=== PATIENT | female | born 1960 | race Caucasian/White ===

== ENCOUNTER 2016-06-12 10:31 | Emergency (ER) | payer SELFPAY ==
[~2016-06-12] VITALS: Ht 172.7 cm; Wt 91.2 kg
[~2016-06-12 10:31] MED LIST: SULF-154 PO
[2016-06-12 10:44] VITALS: BP 122/68; PULSE 69; RESP 16; TEMP 97.8; O2SAT 98
[2016-06-12] MEDS ORDERED: PRIL20CA9 PO (11:01)
--- NOTE | 2016-06-12 11:08 | PD ---
HPI Chief Complaint: Abdominal Pain Time Seen by Provider: 10:48 Travel History International Travel<30 days: No Contact w/Intl Traveler<30days: No Traveled to known affect area: No History of Present Illness HPI This is a 55-year-old female who presents to the emergency department with left- sided abdominal pain that started yesterday evening, intermittent, moderate severity associated with 2 loose stools this morning. She said her friend who is with her any the same thing yesterday had some vomiting last evening. She says she felt nauseous last night but didn't vomit. She denies any fevers or chills. She also says she's had a lot of itching and some white vaginal discharge. She's had one sexual partner in the past 6 months. She says this feels somewhat similar to when she's ruptured an ovarian cyst in the past PFSH Past Medical History Anxiety: Yes Depression: Yes High Cholesterol: Yes Diminished Hearing: No GERD: Yes Immunizations Current: Yes Tetanus Vaccination: < 5 Years Influenza Vaccination: No ?: Not LMP: menapause Menopausal: Yes : 0 Ovarian Cysts: Yes Past Surgical History Gynecologic Surgery: Yes (LAPARASCOPIC FOR OVARIAN CYST, ENDOMETRIOSIS) Oral Surgery: Yes Tonsillectomy: Yes Family History Family Hypercholesterolemia: Yes (MOTHER) Social History Alcohol Use: Yes ("WEEKENDS") Tobacco Use: Yes (1 PPD) Substance Use: Yes (WEED) Allergies-Medications (Allergen,Severity, Reaction): Coded Allergies: Penicillin (Unverified Allergy, Unknown, 06/12/16) Reported Meds & Prescriptions Reported Meds & Active Scripts Active Reported Prilosec (Omeprazole) 20 Mg Cap 40 Mg PO DAILY Review of Systems Except as stated in HPI: all other systems reviewed are Neg Physical Exam Narrative GENERAL:Well appearing, no acute distress SKIN: Warm and dry. HEAD: Atraumatic. Normocephalic. EYES: Pupils equal and round. No injection or drainage. ENT: Moist mucous membranes NECK: Trachea midline. CARDIOVASCULAR: Regular rate and rhythm. No murmur appreciated. RESPIRATORY: Clear to auscultation. Breath sounds equal bilaterally. GASTROINTESTINAL: Abdomen soft, tender to palpation in the left upper quadrant and left lower quadrants with no rebound or guarding. CHAIN CARRIER: no cmt or adnexal discharge, scant white cheesy discharge in the vault MUSCULOSKELETAL: No obvious deformities. NEUROLOGICAL: Awake and alert. No obvious cranial nerve deficits. Moving all extremities. PSYCHIATRIC: Appropriate mood and affect; insight and judgment normal. Data Data Last Documented VS Vital Signs Date Time Temp Pulse Resp B/P Pulse Ox O2 Delivery O2 Flow Rate FiO2 06/12/16 12:42 56 18 111/55 96 Room Air 06/12/16 10:44 97.8 Orders Complete Blood Count With Diff (06/12/16 11:06) Comprehensive Metabolic Panel (06/12/16 11:06) Urinalysis - C+S If Indicated (06/12/16 11:06) Iv Access Insert/Monitor (06/12/16 11:06) Ecg Monitoring (06/12/16 11:06) Oximetry (06/12/16 11:06) Sodium Chloride 0.9% Flush (Ns Flush) (06/12/16 11:15) Lipase (06/12/16 11:06) Urine Culture (06/12/16 11:15) Ct Abd/Pel W Iv Contrast(Rout) (06/12/16 ) Iohexol 350 Inj (Omnipaque 350 Inj) (06/12/16 12:16) Morphine Inj (Morphine Inj) (06/12/16 12:45) Labs Laboratory Tests Test 06/12/16 06/12/16 11:10 11:15 White Blood Count 9.7 TH/MM3 Red Blood Count 4.58 MIL/MM3 Hemoglobin 14.1 GM/DL Hematocrit 40.7 % Mean Corpuscular Volume 88.8 FL Mean Corpuscular Hemoglobin 30.7 PG Mean Corpuscular Hemoglobin 34.6 % Concent Red Cell Distribution Width 13.2 % Platelet Count 193 TH/MM3 Mean Platelet Volume 8.8 FL Neutrophils (%) (Auto) 59.1 % Lymphocytes (%) (Auto) 28.4 % Monocytes (%) (Auto) 6.1 % Eosinophils (%) (Auto) 1.9 % Basophils (%) (Auto) 4.5 % Neutrophils # (Auto) 5.8 TH/MM3 Lymphocytes # (Auto) 2.7 TH/MM3 Monocytes # (Auto) 0.6 TH/MM3 Eosinophils # (Auto) 0.2 TH/MM3 Basophils # (Auto) 0.4 TH/MM3 CBC Comment DIFF FINAL Differential Comment Sodium Level 141 MEQ/L Potassium Level 4.2 MEQ/L Chloride Level 108 MEQ/L Carbon Dioxide Level 22.6 MEQ/L Anion Gap 10 MEQ/L Blood Urea Nitrogen 15 MG/DL Creatinine 0.83 MG/DL Estimat Glomerular Filtration 71 ML/MIN Rate Random Glucose 95 MG/DL Calcium Level 8.9 MG/DL Total Bilirubin 0.2 MG/DL Aspartate Amino Transf 15 U/L (AST/SGOT) Alanine Aminotransferase 31 U/L (ALT/SGPT) Alkaline Phosphatase 120 U/L Total Protein 7.4 GM/DL Albumin 3.5 GM/DL Lipase 274 U/L Urine Collection Type CLEAN CATCH Urine Color STRAW Urine Turbidity CLEAR Urine pH 6.0 Urine Specific [place] 1.006 Urine Protein NEG mg/dL Urine Glucose (UA) NEG mg/dL Urine Ketones NEG mg/dL Urine Occult Blood NEG Urine Nitrite NEG Urine Bilirubin NEG Urine Leukocyte Esterase NEG Urine WBC 0-2 /hpf Urine Squamous Epithelial 0-5 /hpf Cells Urine Amorphous Sediment FEW Urine Bacteria MOD /hpf Microscopic Urinalysis Comment CULTURE INDICATED Urine Collection Time 1115 MDM Medical Decision Making Medical Screen Exam Complete: Yes Emergency Medical Condition: Yes Interpretation(s) Afebrile, no tachycardia, normotensive No leukocytosis Electrolytes are reassuring Lipase is normal Urinalysis is negative CT abdomen and pelvis: Wall thickening of the descending and sigmoid colon from colitis Differential Diagnosis Colitis, diverticulitis, ovarian cyst rupture, pancreatitis, pelvic inflammatory disease Narrative Course This is a 55-year-old female who presents to the emergency department with abdominal pain in the left lower quadrant associated with nausea. She was placed on a monitor and an IV was established. Labs were obtained which were reassuring. Pelvic exam was unremarkable. CT demonstrates colitis. Patient will be discharged on antibiotics and pain control. Diagnosis Primary Impression: Colitis Patient Instructions: General Instructions Additional Instructions: If you develop severe or worsening abdominal pain, fever>100.4, persistent vomiting or inability to eat or drink return to the emergency department immediately. Follow up with your primary care physician in 1-2 days for a check-up. Med/Other Pt SpecificInfo: Prescription(s) given Scripts Fluconazole 150 Mg [id number] Mg PO ONCE #1 TAB Ref 0 Prov:Nataliia Dozier MD 06/12/16 Metronidazole (Flagyl)500 Mg [id number] Mg PO BID 10 Days Prov:Nataliia Dozier MD 06/12/16 Ciprofloxacin 500 Mg [id number] Mg PO BID 10 Days Prov:Nataliia Dozier MD 06/12/16 Disposition: 01 DISCHARGE HOME Condition: Stable Nataliia Dozier MD Jun 12, 2016 11:08
[2016-06-12] MEDS ORDERED: SODIUM CHLORIDE 0.9% FLUSH 5 ML FLUSH IVF PRN (11:15)
[2016-06-12 11:22] LABS: AUTOMATED NEUTROPHIL # 5.8 TH/MM3 (1.8-7.7); BASOPHIL # 0.4 TH/MM3 (0-0.2); BASOPHIL % 4.5 % (0.0-2.0); EOSINOPHIL # 0.2 TH/MM3 (0-0.4); EOSINOPHIL % 1.9 % (0.0-4.0); HEMATOCRIT 40.7 % (35.0-46.0); HEMO FLAGS DIFF FINAL; LYMPH % 28.4 % (9.0-44.0); LYMPHOCYTE # 2.7 TH/MM3 (1.0-4.8); MEAN CELL VOLUME 88.8 FL (80.0-100.0); MEAN CORPUSCULAR HEMOGLOBIN 30.7 PG (27.0-34.0); MEAN CORPUSCULAR HGB CONC 34.6 % (32.0-36.0); MONO % 6.1 % (0.0-8.0); NEUT % 59.1 % (16.0-70.0); PLATELET COUNT 193 TH/MM3 (150-450); RED BLOOD COUNT 4.58 MIL/MM3 (4.00-5.30); RED CELL DISTRIBUTION WIDTH 13.2 % (11.6-17.2); WHITE BLOOD COUNT 9.7 TH/MM3 (4.0-11.0)
[2016-06-12 11:25] VITALS: O2SAT 98
[2016-06-12 11:34] LABS: BLOOD, URINE NEG (NEG); GLUCOSE,URINE NEG (NEG); KETONE, URINE NEG (NEG); NITRITE,URINE NEG (NEG)
[2016-06-12 11:45] LABS: METHOD OF COLLECTION CLEAN CATCH; URINE COLOR STRAW (YELLW/STRAW)
[2016-06-12 11:46] LABS: BACTERIA, URINE MOD /hpf; COMMENT (UR) CULTURE INDICATED; CULTURE IF INDICATED CULTURE INDICATED; SQUAMOUS EPITHELIAL CELL URINE 0-5 /hpf (0-5); WBC, URINE 0-2 /hpf (0-5)
[2016-06-12 12:07] LABS: CHLORIDE 108 MEQ/L (98-107); POTASSIUM 4.2 MEQ/L (3.5-5.1); SODIUM (NA) 141 MEQ/L (136-145)
[2016-06-12] MEDS ORDERED: IOHEXOL 350 MG/ML 10 ML VIAL (for RAD DIAG) IV ONE (12:16)
[2016-06-12 12:34] LABS: TOTAL BILIRUBIN ADULT 0.2 MG/DL (0.2-1.0)
[2016-06-12 12:35] LABS: ALKALINE PHOSPHATASE 120 U/L (45-117)
[2016-06-12 12:39] LABS: ANION GAP 10 MEQ/L (5-15); BICARBONATE 22.6 MEQ/L (21.0-32.0); BLOOD UREA NITROGEN 15 MG/DL (7-18)
[2016-06-12 12:42] VITALS: BP 111/55; PULSE 56; RESP 18; O2SAT 96
[2016-06-12 12:42] LABS: ALT (GPT) 31 U/L (10-53); AST (GOT) 15 U/L (15-37); GLOMERULAR FILTRATION RATE 71 ML/MIN (>89)
--- NOTE | 2016-06-12 12:42 | RADHPO ---
EXAM DATE/TIME: 06/12/2016 12:07 [facility] COMPARISON: No previous studies available for comparison. INDICATIONS : Left sided abdominal pain since last night. IV CONTRAST: 100 cc Omnipaque 350 (iohexol) IV ORAL CONTRAST: No oral contrast ingested. RADIATION DOSE: 20.83 CTDIvol (mGy) MEDICAL HISTORY : Gastroesophageal reflux disease. SURGICAL HISTORY : None. ENCOUNTER: Initial ACUITY: 2 days PAIN SCALE: 6/10 LOCATION: Left abdomen TECHNIQUE: Volumetric scanning of the abdomen and pelvis was performed. Using automated exposure control and ad justment of the mA and/or kV according to patient size, radiation dose was kept as low as reasonably achievable to obtain optimal diagnostic quality images. FINDINGS: LOWER LUNGS: The visualized lower lungs are clear. LIVER: Decreased attenuation without lesion. There is no dilation of the biliary tree. No calcified gallst ones. SPLEEN: Normal size without lesion. PANCREAS: Within normal limits. KIDNEYS: Normal in size and shape. There is no mass, stone or hydronephrosis. ADRENAL GLANDS: Within normal limits. VASCULAR: There is no aortic aneurysm. BOWEL/MESENTERY: Wall thickening versus nondistention of the descending and sigmoid colon. No inflammatory changes. Ap pendix is normal. There is no free intraperitoneal air or fluid. Single prominent diverticulum of the distal descending colon. ABDOMINAL WALL: Within normal limits. RETROPERITONEUM: There is no lymphadenopathy. BLADDER: No wall thickening or mass. REPRODUCTIVE: Within normal limits. INGUINAL: There is no lymphadenopathy or hernia. MUSCULOSKELETAL: Within normal limits for patient age. CONCLUSION: 1. Hepatic steatosis. 2. Wall thickening versus nondistention of the descending and sigmoid colon could be from a colitis. No significant inflammatory changes. 3. There is a single prominent diverticula within the distal descending colon without diverticulitis. William Brown MD on June 12, 2016 at 12:28 Board Certified Radiologist. This report was verified electronically.
[2016-06-12] MEDS ORDERED: MORPHINE SULFATE 4 MG/ML INJ IV PUSH ONE (12:45)
[2016-06-12] MEDS ORDERED: FLUC150T PO (12:59)
[2016-06-12] MEDS ORDERED: METR-1 PO (12:59)
[2016-06-12] MEDS ORDERED: CIPR500T2 PO (12:59)
[2016-06-12] MEDS ORDERED: TRAM50TA PO (13:00)
[2016-06-12 13:36] VITALS: BP 110/55
== END 2016-06-12 13:41 | disposition home or self-care (01) ==
LOC: PHED 10:31
DX: K52.9 Noninfective gastroenteritis and colitis, unspecified (principal); N89.8 Other specified noninflammatory disorders of vagina; E78.00 Pure hypercholesterolemia, unspecified; N83.209 Unspecified ovarian cyst, unspecified side; F17.210 Nicotine dependence, cigarettes, uncomplicated
CPT/HCPCS: 74177; 80053; 81001; 83690; 85025; 87086; 96374; 99284; J2270; Q9967

== ENCOUNTER 2018-01-23 09:03 | Inpatient (IN) ==
[2018-01-23] MEDS ORDERED: Morphine Inj 4 MG/ML Vial IV.PUSH ONE (09:16)
--- NOTE | 2018-01-23 09:22 | ED ---
HPI General Chief Complaint: Fall Stated Complaint: workers comp/lt wrist injury Time Seen by Provider: 01/23/18 09:12 History of Present Illness HPI Narrative: The patient was seen and examined in the presence of the nurse. This patient complains of a fall. She tripped over her shoelaces and fell down on the concrete. Duration 1 hour. Symptoms of pain are severe. She has pain and deformity at the left wrist as well as pain at the right elbow. She did not hit her head. No head or neck pain. No alleviating factors. Pain is worse with movement of the affected joint. Related Data Home Medications Medication Instructions Recorded Confirmed No Known Home Medications 01/23/18 01/23/18 Allergies Allergy/AdvReac Type Severity Reaction Status Date / Time penicillin G Allergy Unknown not sure Verified 01/23/18 10:08 Review of Systems ROS: all other systems reviewed are negative FOR[facility]LY [facility] Medical History Medical History No significant medical problems (Acute) Social History Social History Substance History: No History of Abuse Smoking Status: Current every day smoker Tobacco Type: Cigarettes How Often Do You Have a Drink Containing Alcohol: Monthly or less Exam Narrative Exam Narrative: GENERAL: Well-nourished, well-developed patient having a lot of pain . SKIN: Focused skin assessment reveals no rash and nodules. Skin is Warm and dry. HEAD: Atraumatic. Normocephalic. EYES: Pupils equal and round. No scleral icterus. No injection or drainage. ENT: No nasal bleeding or discharge. Mucous membranes pink and moist. NECK: Trachea midline. No JVD. CARDIOVASCULAR: Regular rate and rhythm. No murmur appreciated. RESPIRATORY: No accessory muscle use. Clear to auscultation. Breath sounds equal bilaterally. GASTROINTESTINAL: Abdomen soft, non-tender, nondistended. Hepatic and splenic margins not palpable. MUSCULOSKELETAL: Patient has some tenderness and deformity of the left wrist. Pulse sensation and cap refill intact. There is some tenderness to the lateral epicondyle area of the right elbow. Neurovascularly intact. no clubbing. No cyanosis. No edema. NEUROLOGICAL: Awake and alert. No obvious cranial nerve deficits. Motor grossly within normal limits. Normal speech. PSYCHIATRIC: Appropriate mood and affect; insight and judgment normal. Course Initial Documented Vital Signs Temperature 97.9 F 01/23/18 09:05 Pulse Rate 103 H 01/23/18 09:05 Respiratory Rate 20 01/23/18 09:05 Blood Pressure 177/84 H 01/23/18 09:05 Pulse Oximetry 97 01/23/18 09:05 Last Documented Vital Signs Temperature 97.9 F 01/23/18 09:05 Pulse Rate 61 01/23/18 10:32 Respiratory Rate 16 01/23/18 10:32 Blood Pressure 126/61 01/23/18 10:32 Pulse Oximetry 96 01/23/18 10:32 Medical Decision Making MDM Narrative Medical decision making narrative: This is a 57-year-old female with mechanical fall presenting with left wrist pain and deformity. IV placed and labs sent. I gave her morphine and Zofran for symptom relief. I ordered x-rays. She has a nondisplaced right radial head fracture. She also has a comminuted displaced left distal radius fracture. She has pulse and sensation and cap refill. I reviewed it with orthopedist Dr. Andrade who looked at the x-rays. He notes that this is an operative repair. Patient would rather be hospitalized and get surgery tomorrow morning rather than see the orthopedist in the office today and have surgery for tomorrow. Labs are reasonably normal. Shortly after discussion with orthopedist the patient started complaining of pins and needle sensation in all 5 fingers and the palm of her left hand. She continues to have good pulse. I reviewed with Dr. Andrade a second time and he agreed that I should do conscious sedation and attempt reduction of the left wrist to line it up better than it is now. I reviewed this in detail with the patient and recommended that I do this. The patient refused to have me give her sedation or touch her wrist again. She says she wants to orthopedist to do any manipulation. I explained that he was in the other hospital at the moment and I could do this now but she refused. Patient will be admitted to the main hospital for operative repair of her wrist. She is now aggravated and frustrated that she is not getting seen and operated on right away. She seems to be getting more and more irritable as time goes on. I will give her a second morphine injection if her blood pressure allows. Dr. saucedo is seeing her at the moment Medical Screen Exam Complete: Yes Emergency Medical Condition: Yes Differential Diagnosis Differential Diagnosis: Fracture, dislocation, contusion Medical Records Medical records reviewed: Yes I reviewed the patient's medical records. Lab Data Lab results reviewed: Yes I reviewed the patient's lab results. Lab results narrative: Labs are normal Result diagrams: 01/23/18 09:44 01/23/18 09:44 Lab Results 01/23/18 01/23/18 01/23/18 Range/Units 09:44 09:44 09:44 CBC w Diff Auto diff final WBC 7.6 (4.0-11.0) th/mm3 RBC 4.54 (4.00-5.30) mil/mm3 Hgb 14.3 (11.6-15.3) gm/dL Hct 42.3 (35.0-46.0) % MCV 93.1 (80.0-100.0) fL MCH 31.5 (27.0-34.0) pg MCHC 33.8 (32.0-36.0) % RDW 12.7 (11.6-17.2) % Plt Count 174 (150-450) th/mm3 MPV 9.3 (7.0-11.0) fL Neut % (Auto) 66.1 (16.0-70.0) % Lymph % (Auto) 25.4 (9.0-44.0) % [place] % (Auto) 6.6 (0.0-8.0) % Eos % (Auto) 1.3 (0.0-4.0) % Baso % (Auto) 0.6 (0.0-2.0) % Neut # (Auto) 5.1 (1.8-7.7) th/mm3 Lymph # (Auto) 1.9 (1.0-4.8) th/mm3 [place] # (Auto) 0.5 (0.0-0.9) th/mm3 Eos # (Auto) 0.1 (0.0-0.4) th/mm3 Baso # (Auto) 0.0 (0.0-0.2) th/mm3 WBC Differential . Differential Comment . PT 9.7 L (9.8-11.6) sec INR 1.0 Ratio APTT 26.6 (24.3-30.1) sec Sodium 140 (136-145) meq/L Potassium 3.8 (3.5-5.1) meq/L Chloride 108 H (98-107) meq/L Carbon Dioxide 22.4 (21.0-32.0) meq/L Anion Gap 10 (5-15) meq/L BUN 14 (7-18) mg/dL Creatinine 0.79 (0.50-1.00) mg/dL Estimated GFR 75 L (>89) mL/min Random Glucose 128 H (74-106) mg/dL Calcium 8.5 (8.5-10.1) mg/dL Imaging Data Attestation: I personally reviewed and interpreted this imaging study as follows : Radiologist's impression: Elbow X-Ray 01/23/18 09:16 CONCLUSION: Acute nondisplaced radial head fracture. Joint effusion. Wrist X-Ray 01/23/18 09:16 CONCLUSION: Distal radial fracture as detailed above. Patient has fractures of the left distal radius and right radial head Discharge Plan Discharge Disposition Patient Disposition: 30 Still Patient Discharge Details Diagnosis: Fracture of wrist Physicians Team ED Provider: Kirby [place] Primary Care Provider: Primary Care Deanna Moses Attending Provider: William Pearce Discharge Interventions Interventions: Vital Signs Last Done: 01/23/18 10:32 Status ED Status: Admitted Patient
--- NOTE | 2018-01-23 09:38 | XR ---
EXAM DATE: 01/23/2018 9:16 AM EDT AGE/SEX: 57 years / Female INDICATIONS: Right elbow pain post fall today. CLINICAL DATA: This is the patient's initial encounter. Patient reports that signs and symptoms have been present for 1 day and indicates a pain score of 8/10. MEDICAL/SURGICAL HISTORY: None. None. COMPARISON: No prior exams available for comparison. FINDINGS: 4 images of the right elbow reveal an acute nondisplaced fracture through the radial head. There is i ntra-articular extension present. No angulation or distraction. A large joint effusion noted. Remaini ng bony structures are unremarkable. CONCLUSION: Acute nondisplaced radial head fracture. Joint effusion. Electronically signed by: Kevin Gentile MD 01/23/2018 9:37 AM EDT
--- NOTE | 2018-01-23 09:40 | XR ---
EXAM DATE: 01/23/2018 9:16 AM EDT AGE/SEX: 57 years / Female INDICATIONS: Left wrist pain post fall today. CLINICAL DATA: This is the patient's initial encounter. Patient reports that signs and symptoms have been present for 1 day and indicates a pain score of 5/10. MEDICAL/SURGICAL HISTORY: None. None. COMPARISON: [facility], XR WRIST (MIN 3 VIEWS), LEFT, 11/23/2017. . FINDINGS: 3 views of the left wrist reveal an acute fracture through the distal radial metaphysis. 30 degrees o f angulation seen with apex towards the palmar surface. The fracture is comminuted in nature. The car pus remains in contact with the articular surface of the displaced distal radial fragment. Ulna is in tact. Carpus is intact. Soft tissue swelling noted. CONCLUSION: Distal radial fracture as detailed above. Electronically signed by: Kevin Gentile MD 01/23/2018 9:39 AM EDT
[2018-01-23 10:10] LABS: Baso % (Auto) 0.6 % (0.0-2.0); Eos # (Auto) 0.1 th/mm3 (0.0-0.4); Eos % (Auto) 1.3 % (0.0-4.0); Hematocrit 42.3 % (35.0-46.0); Hemoglobin 14.3 gm/dL (11.6-15.3); Lymph # (Auto) 1.9 th/mm3 (1.0-4.8); Lymph % (Auto) 25.4 % (9.0-44.0); Mean Corpuscular HGB Conc 33.8 % (32.0-36.0); Mean Corpuscular Hemoglobin 31.5 pg (27.0-34.0); Mean Corpuscular Volume 93.1 fL (80.0-100.0); Mean Platelet Volume 9.3 fL (7.0-11.0); Mono # (Auto) 0.5 th/mm3 (0.0-0.9); Mono % (Auto) 6.6 % (0.0-8.0); Neut # (Auto) 5.1 th/mm3 (1.8-7.7); Neut % (Auto) 66.1 % (16.0-70.0); Platelet Count 174 th/mm3 (150-450); Red Blood Count 4.54 mil/mm3 (4.00-5.30); Red Cell Distribution Width 12.7 % (11.6-17.2); White Blood Count 7.6 th/mm3 (4.0-11.0)
[2018-01-23 10:22] LABS: Potassium 3.8 meq/L (3.5-5.1)
[2018-01-23 10:24] LABS: Calcium 8.5 mg/dL (8.5-10.1)
[2018-01-23 10:25] LABS: Carbon Dioxide 22.4 meq/L (21.0-32.0)
[2018-01-23 10:39] LABS: Activated Partial Thrombo Time 26.6 sec (24.3-30.1); Prothrombin Time 9.7 sec (9.8-11.6)
[2018-01-23] MEDS ORDERED: HYDROmorphone PF Inj 2 MG/ML Vial IV.PUSH ONE (10:58)
[2018-01-23] MEDS ORDERED: Acetaminophen 325 MG Tablet PO PRN (11:02)
[2018-01-23] MEDS ORDERED: Naloxone Inj 0.4 MG/ML Vial IV.PUSH PRN (11:09)
--- NOTE | 2018-01-23 11:27 | P.HP ---
History of Present Illness Primary Care Physician: No Primary Care Physician Chief Complaint: Left wrist pain History of Present Illness: 57-year-old female with no significant medical history presented to the ED for evaluation of an acute left wrist pain status post mechanical fall which occurred an hour prior to arrival to the emergency department. Apparently, patient tripped over her shoelaces and fell down on the concrete floor landing on her left arm. Immediately complaint of left wrist and right elbow pain. The pain to the left wrist was rated over 10 in intensity. She denied any trauma to her head. Left wrist XRAY reveals Distal radial fracture, and right elbow xray reveals Acute nondisplaced radial head fracture - Diagnosis (1) Fracture of wrist (2) Nondisplaced fracture of head of right radius (3) Tobacco abuse (4) Tobacco abuse counseling Inpatient Certification: I certify that the inpatient services were ordered in accordance with Medicare regulations governing the order. This includes certification that hospital inpatient services are reasonable and necessary and in the case of services not specified as inpatient-only under 42 CFR 419.22(n), that they are appropriately provided as inpatient services in accordance to with the 2-midnight benchmark under 43 CFR 412.3(e) Estimated Total Length of Stay (Days): 2 Plans for Post Hospital Care: Not yet determined Review of Systems All other systems reviewed negative except as stated in HPI PMFSH - History History Provided By: Patient - Medical History Medical History: Medical History (Last Updated 01/23/18 @ 09:31 by Wendie Multani RN) No significant medical problems - Family History Family History: Family History (Last Updated 01/23/18 @ 11:15 by William Pearce MD) Other No history of heart disease - Social History I have reviewed the patient's Social History: Yes - Tobacco History Tobacco Use In Past 30 Days: Yes Smoking Status: Current every day smoker Tobacco Type: Cigarettes - Alcohol History How Often Do You Have a Drink Containing Alcohol: Monthly or less - Substance Use History Substance History: No History of Abuse - Immunization History Tetanus Immunization: >5 Years Medications and Allergies Active Medications: Active Medications Acetaminophen (Tylenol) 650 mg PO Q4H PRN PRN Reason: Temp > 100.4 Hydrocodone Bitart/Acetaminophen ([place] 5/325) 1 tab PO Q4H PRN PRN Reason: PAIN SCALE 3 TO 5 Hydrocodone Bitart/Acetaminophen ([place] 7.5/325) 1 tab PO Q4H PRN PRN Reason: PAIN SCALE 6 TO 10 Morphine Sulfate (Morphine Inj) 2 mg IV.PUSH Q3H PRN PRN Reason: BREAKTHROUGH PAIN Naloxone HCl (Narcan Inj) 0.4 mg IV.PUSH UNSCH PRN PRN Reason: SEE LABEL COMMENTS Nicotine (Habitrol 21 Mg Patch.24 Hr) 1 patch T-DERMAL DAILY [facility] Ondansetron HCl (Zofran Inj) 4 mg IV.PUSH Q6H PRN PRN Reason: NAUSEA OR VOMITING Patch Removal (Remove Old Patch) 1 each T-DERMAL HS [facility] Allergies Allergy/AdvReac Type Severity Reaction Status Date / Time penicillin G Allergy Unknown not sure Verified 01/23/18 10:08 Home Medications Medication Instructions Recorded Confirmed Type No Known Home Medications 01/23/18 01/23/18 History Exam Vital signs: Vital Signs 01/23/18 09:05 01/23/18 10:06 01/23/18 10:10 Temperature 97.9 F Pulse Rate 103 H 62 Respiratory Rate 20 18 18 Blood Pressure 177/84 H 119/61 Pulse Oximetry 97 95 01/23/18 10:32 Temperature Pulse Rate 61 Respiratory Rate 16 Blood Pressure 126/61 Pulse Oximetry 96 Intake & Output 01/22/18 01/23/18 01/23/18 18:59 06:59 18:59 Weight 94 kg Narrative: GENERAL: NAD SKIN: Warm and dry. HEAD: Atraumatic. Normocephalic. EYES: Pupils equal and round. No scleral icterus. No injection or drainage. ENT: No nasal bleeding or discharge. Mucous membranes pink and moist. NECK: Trachea midline. No JVD. CARDIOVASCULAR: Regular rate and rhythm. RESPIRATORY: No accessory muscle use. Clear to auscultation. Breath sounds equal bilaterally. GASTROINTESTINAL: Abdomen soft, non-tender, nondistended. Hepatic and splenic margins not palpable. MUSCULOSKELETAL: Extremities without clubbing, cyanosis, or edema. left wrist TTP with limited ROM-no neurovascular deficit NEUROLOGICAL: Awake and alert. No obvious cranial nerve deficits. Motor grossly within normal limits. Five out of 5 muscle strength in the arms and legs. Normal speech. PSYCHIATRIC: Appropriate mood and affect; insight and judgment normal. Results - Labs CBC & Chem 7: 01/23/18 09:44 01/23/18 09:44 Labs: Laboratory Results - last 24 hr 01/23/18 01/23/18 01/23/18 09:44 09:44 09:44 CBC w Diff Auto diff final WBC 7.6 RBC 4.54 Hgb 14.3 Hct 42.3 MCV 93.1 MCH 31.5 MCHC 33.8 RDW 12.7 Plt Count 174 MPV 9.3 Neut % (Auto) 66.1 Lymph % (Auto) 25.4 [place] % (Auto) 6.6 Eos % (Auto) 1.3 Baso % (Auto) 0.6 Neut # (Auto) 5.1 Lymph # (Auto) 1.9 [place] # (Auto) 0.5 Eos # (Auto) 0.1 Baso # (Auto) 0.0 WBC Differential . Differential Comment . PT 9.7 L INR 1.0 APTT 26.6 Sodium 140 Potassium 3.8 Chloride 108 H Carbon Dioxide 22.4 Anion Gap 10 BUN 14 Creatinine 0.79 Estimated GFR 75 L Random Glucose 128 H Calcium 8.5 - Imaging Impressions Elbow X-Ray 01/23/18 09:16 CONCLUSION: Acute nondisplaced radial head fracture. Joint effusion. Wrist X-Ray 01/23/18 09:16 CONCLUSION: Distal radial fracture as detailed above. Caprini VTE Risk Assessment Caprini VTE Risk Assessment: No/Low Risk (score <= 1) Caprini Risk Assessment Model: Point Value = 1 Point Value = 2 Point Value = 3 Point Value = 5 Age 41-60 Minor surgery BMI > 25 kg/m2 Swollen legs Varicose veins or History of unexplained or recurrent spontaneous Oral contraceptives or hormone replacement Sepsis (< 1 month) Serious lung disease, including pneumonia (< 1 month) Abnormal pulmonary function Acute myocardial infarction Congestive heart failure (< 1 month) History of inflammatory bowel disease Medical patient at bed rest Age 61-74 Arthroscopic surgery Major open surgery (> 45 min) Laparoscopic surgery (> 45 min) Malignancy Confined to bed (> 72 hours) Immobilizing plaster cast Central venous access Age >= 75 History of VTE Family history of VTE Factor V Leiden Prothrombin [id number] Lupus anticoagulant Anticardiolipin antibodies Elevated serum homocysteine Heparin-induced thrombocytopenia Other congenital or acquired thrombophilia Stroke (< 1 month) Elective arthroplasty Hip, pelvis, or leg fracture Acute spinal cord injury (< 1 month) Prophylaxis Regimen: Total Risk Factor Score Risk Level Prophylaxis Regimen 0-1 Low Early ambulation 2 Moderate Order ONE of the following: *Sequential Compression Device (SCD) *Heparin 5000 units SQ BID 3-4 Higher Order ONE of the following medications: *Heparin 5000 units SQ TID *Enoxaparin/Lovenox 40 mg SQ daily (WT < 150 kg, CrCl > 30 mL/min) *Enoxaparin/Lovenox 30 mg SQ daily (WT < 150 kg, CrCl > 10-29 mL/min) *Enoxaparin/Lovenox 30 mg SQ BID (WT < 150 kg, CrCl > 30 mL/min) AND/OR *Sequential Compression Device (SCD) 5 or more Highest Order ONE of the following medications: *Heparin 5000 units SQ TID (Preferred with Epidurals) *Enoxaparin/Lovenox 40 mg SQ daily (WT < 150 kg, CrCl > 30 mL/min) *Enoxaparin/Lovenox 30 mg SQ daily (WT < 150 kg, CrCl > 10-29 mL/min) *Enoxaparin/Lovenox 30 mg SQ BID (WT < 150 kg, CrCl > 30 mL/min) AND *Sequential Compression Device (SCD) Assessment and Plan - Assessment (1) Fracture of wrist Code(s): S62.109A - Fracture of unspecified carpal bone, unspecified wrist, initial encounter for closed fracture Status: Acute (2) Nondisplaced fracture of head of right radius Code(s): S52.124A - Nondisplaced fracture of head of right radius, initial encounter for closed fracture Status: Acute (3) Tobacco abuse Code(s): Z72.0 - Tobacco use Status: Acute (4) Tobacco abuse counseling Code(s): Z71.6 - Tobacco abuse counseling Status: Acute - Plan 57-year-old female with Left Distal radial fracture Acute nondisplaced radial head fracture Left Wrist and right Shoulder x-rays were reviewed finding respectively of left distal radial fracture, acute nondisplaced radial head fracture Orthopedic surgery has been consulted and plan for repair of left distal radial fracture tomorrow January 24, 2018 Pain management accordingly with IV parenteral medication Keep n.p.o. after midnight Tobacco abuse Tobacco counseling cessation provided Nicotine patch DVT prophylaxis: Bilateral SCDs Code Status: Full code Discussed Condition With: Patient, ED physician (1) Fracture of wrist Qualifiers: Encounter type: initial encounter Fracture type: closed Laterality: left Qualified Code(s): S62.102A - Fracture of unspecified carpal bone, left wrist, initial encounter for closed fracture
--- NOTE | 2018-01-23 11:39 | CT ---
EXAM DATE: 01/23/2018 11:09 AM EDT AGE/SEX: 57 years / Female INDICATIONS: Trauma, fall. Evaluate left wrist fracture. CLINICAL DATA: This is the patient's initial encounter. Patient reports that signs and symptoms have been present for 1 day and indicates a pain score of 10/10. MEDICAL/SURGICAL HISTORY: None. None. RADIATION DOSE: 13.05 CTDI (mGy) COMPARISON: HPO, WRIST COMPLETE LEFT MIN 3V, 01/23/2018. . . TECHNIQUE: Multiple contiguous axial images were acquired using a multirow detector CT scanner witho ut contrast. Multiplanar reconstruction was performed in the sagittal and coronal planes. Using aut omated exposure control and adjustment of the mA and/or kV according to patient size, radiation dose was kept as low as reasonably achievable to obtain optimal diagnostic quality images. DICOM format i mage data is available electronically for review and comparison. FINDINGS: There is an acute comminuted fracture involving the distal radial metaphysis. The fracture is comminu rommel in nature but predominantly perpendicular to the long axis of the bone. 5 mm of displacement of t he distal fracture fragment and carpus towards the palmar surface. There is 30 degrees of angulation as well. There is intra-articular extension of the fracture to the radiocarpal joint surface. The rem aining carpus is intact. There is a tiny fracture involving the ulnar styloid which may be chronic in nature. Soft tissue swelling is noted. 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 Intercarpal hugo nt spaces are unremarkable. CONCLUSION: 1. Acute distal radial fracture as detailed above. 2. Ulnar styloid fracture. This may be chronic. Electronically signed by: Kevin Gentile MD 01/23/2018 11:38 AM EDT
[2018-01-23] MEDS: Morphine Inj 4 MG/ML Vial IV.PUSH PRN ×4 (12:20→22:51)
[2018-01-24] MEDS ORDERED: HYDROmorphone PF Inj 0.5 MG/0.5 ML Syringe IV.PUSH ONE (00:39)
[2018-01-24] MEDS ORDERED: HYDROmorphone PF Inj 2 MG/ML Vial IV.PUSH ONE (01:15)
[2018-01-24 06:13] LABS: Baso % (Auto) 0.4 % (0.0-2.0); Eos # (Auto) 0.1 th/mm3 (0.0-0.4); Eos % (Auto) 0.8 % (0.0-4.0); Hematocrit 39.8 % (35.0-46.0); Hemoglobin 13.6 gm/dL (11.6-15.3); Lymph # (Auto) 2.7 th/mm3 (1.0-4.8); Lymph % (Auto) 30.8 % (9.0-44.0); Mean Corpuscular HGB Conc 34.2 % (32.0-36.0); Mean Corpuscular Hemoglobin 32.4 pg (27.0-34.0); Mean Corpuscular Volume 94.9 fL (80.0-100.0); Mean Platelet Volume 9.2 fL (7.0-11.0); Mono # (Auto) 0.7 th/mm3 (0.0-0.9); Mono % (Auto) 8.5 % (0.0-8.0); Neut # (Auto) 5.1 th/mm3 (1.8-7.7); Neut % (Auto) 59.5 % (16.0-70.0); Platelet Count 152 th/mm3 (150-450); Red Blood Count 4.19 mil/mm3 (4.00-5.30); Red Cell Distribution Width 13.6 % (11.6-17.2); White Blood Count 8.6 th/mm3 (4.0-11.0)
[2018-01-24] MEDS: HYDROmorphone PF Inj 2 MG/ML Vial IV.PUSH PRN ×3 (06:16→14:46)
[2018-01-24 06:42] LABS: Alanine Aminotransferase 27 U/L (10-53); Albumin 3.4 g/dL (3.4-5.0); Anion Gap 11 meq/L (5-15); Aspartate Aminotransferase 15 U/L (15-37); Blood Urea Nitrogen 11 mg/dL (7-18); Carbon Dioxide 26.2 meq/L (21.0-32.0); Chloride 105 meq/L (98-107); Glomerular Filtration Rate 66 mL/min (>89); Glucose,Random 108 mg/dL (74-106); Potassium 3.7 meq/L (3.5-5.1); Sodium 142 meq/L (136-145)
[2018-01-24 06:44] LABS: Alkaline Phosphatase 102 U/L (45-117); Total Protein 7.2 g/dL (6.4-8.2)
--- NOTE | 2018-01-24 08:31 | P.CONOP ---
[facility] Orthopedics Consult Note - [facility] Consult date: 01/24/18 Requesting physician: William Pearce Consult reason: fracture Chief complaint: L wrist fx requiring operative repair Narrative: 57-year-old female with no significant medical history presented to the ED for evaluation of an acute left wrist pain status post mechanical fall which occurred an hour prior to arrival to the emergency department. Apparently, patient tripped over her shoelaces and fell down on the concrete floor landing on her left arm. Immediately complaint of left wrist and right elbow pain. The pain to the left wrist was rated over 10 in intensity. She denied any trauma to her head. Left wrist XRAY reveals Distal radial fracture, and right elbow xray reveals Acute nondisplaced radial head fracture. In the emergency room she had sedation and closed reduction of the left distal radius fracture. She was having some loss of sensation in the emergency room. That improved. She was admitted to the hospital and I have been asked to see the patient in consultation regarding the same Review of Systems All other systems reviewed negative except as stated in [facility] - History History Provided By: Patient - Medical History Medical History: Medical History (Last Updated 01/23/18 @ 09:31 by Wendie Mlutani RN) No significant medical problems - Family History Family History: Family History (Last Updated 01/23/18 @ 11:15 by William Pearce MD) Other No history of heart disease - Tobacco History Tobacco Use In Past 30 Days: Yes Smoking Status: Current every day smoker Tobacco Type: Cigarettes - Alcohol History How Often Do You Have a Drink Containing Alcohol: Monthly or less - Substance Use History Substance History: No History of Abuse - Immunization History Tetanus Immunization: >5 Years Medications and Allergies Active Medications: Active Medications Acetaminophen (Tylenol) 650 mg PO Q4H PRN PRN Reason: Temp > 100.4 Hydrocodone Bitart/Acetaminophen ([place] 5/325) 1 tab PO Q4H PRN PRN Reason: PAIN SCALE 3 TO 5 Hydrocodone Bitart/Acetaminophen ([place] 7.5/325) 1 tab PO Q4H PRN PRN Reason: PAIN SCALE 6 TO 10 Last Admin: 01/24/18 03:37 Dose: 1 tab Hydromorphone HCl (Dilaudid Pf Inj) 1 mg IV.PUSH Q4H PRN PRN Reason: BREAKTHROUGH PAIN Last Admin: 01/24/18 06:16 Dose: 1 mg Naloxone HCl (Narcan Inj) 0.4 mg IV.PUSH UNSCH PRN PRN Reason: SEE LABEL COMMENTS Nicotine (Habitrol 21 Mg Patch.24 Hr) 1 patch T-DERMAL DAILY [facility] Last Admin: 01/23/18 11:33 Dose: 1 patch Ondansetron HCl (Zofran Inj) 4 mg IV.PUSH Q6H PRN PRN Reason: NAUSEA OR VOMITING Last Admin: 01/24/18 01:42 Dose: 4 mg Patch Removal (Remove Old Patch) 1 each T-DERMAL HS [facility] Last Admin: 01/23/18 20:56 Dose: 1 each Allergies Allergy/AdvReac Type Severity Reaction Status Date / Time penicillin G Allergy Unknown not sure Verified 01/23/18 10:08 Home Medications Medication Instructions Recorded Confirmed Type No Known Home Medications 01/23/18 01/23/18 History Exam Vital signs: Vital Signs 01/23/18 09:05 01/23/18 10:06 01/23/18 10:10 Temperature 97.9 F Pulse Rate 103 H 62 Respiratory Rate 20 18 18 Blood Pressure 177/84 H 119/61 Pulse Oximetry 97 95 01/23/18 10:32 01/23/18 11:14 01/23/18 11:57 Temperature Pulse Rate 61 64 Respiratory Rate 16 16 19 Blood Pressure 126/61 136/69 Pulse Oximetry 96 96 01/23/18 12:00 01/23/18 12:31 01/23/18 16:00 Temperature 97.4 F L 97.4 F L Pulse Rate 63 64 69 Respiratory Rate 18 18 18 Blood Pressure 147/71 H 128/71 165/84 H Pulse Oximetry 100 96 94 L 01/23/18 20:00 01/24/18 00:00 01/24/18 08:00 Temperature 97.9 F 99.1 F 97.3 F L Pulse Rate 65 70 63 Respiratory Rate 18 18 17 Blood Pressure 159/77 H 166/72 H Pulse Oximetry 96 94 L 92 L Intake & Output 01/23/18 01/24/18 01/24/18 18:59 06:59 18:59 Intake Total 800 / 800 Balance 800 / 800 Weight 95 kg 97.4 kg Intake: Oral 800 / 800 Other: # Voids 1 2 Date of Last Bowel Movement 01/22/18 Narrative: HEENT: Normocephalic atraumatic pupils equal round reactive. NECK: Supple. No abnormal masses. Full range of motion. CHEST: Clear to auscultation with no rales or rhonchi's or wheezes. HEART: Regular rate and rhythm. No murmurs. ABDOMEN: Soft, nontender, no masses. Normal active bowel sounds. GENITOURINARY: Deferred MUSCULOSKELETAL: Right elbow mild tenderness. Almost full range of motion. Mild swelling. No instability. Pain with range of motion. Left arm is in a sugar tong splint. Sensation is almost normal of all of her fingers. Mild swelling. She is able to wiggle her fingers and has mild pain. Results - Labs Result Diagrams: 01/24/18 05:43 01/24/18 05:43 Labs: Laboratory Results - last 24 hr 01/23/18 01/23/18 01/23/18 09:44 09:44 09:44 CBC w Diff Auto diff final WBC 7.6 RBC 4.54 Hgb 14.3 Hct 42.3 MCV 93.1 MCH 31.5 MCHC 33.8 RDW 12.7 Plt Count 174 MPV 9.3 Neut % (Auto) 66.1 Lymph % (Auto) 25.4 [place] % (Auto) 6.6 Eos % (Auto) 1.3 Baso % (Auto) 0.6 Neut # (Auto) 5.1 Lymph # (Auto) 1.9 [place] # (Auto) 0.5 Eos # (Auto) 0.1 Baso # (Auto) 0.0 WBC Differential . Differential Comment . PT 9.7 L INR 1.0 APTT 26.6 Sodium 140 Potassium 3.8 Chloride 108 H Carbon Dioxide 22.4 Anion Gap 10 BUN 14 Creatinine 0.79 Estimated GFR 75 L Random Glucose 128 H Calcium 8.5 Total Bilirubin AST ALT Alkaline Phosphatase Total Protein Albumin 01/24/18 01/24/18 05:43 05:43 CBC w Diff WBC 8.6 RBC 4.19 Hgb 13.6 Hct 39.8 MCV 94.9 MCH 32.4 MCHC 34.2 RDW 13.6 Plt Count 152 MPV 9.2 Neut % (Auto) 59.5 Lymph % (Auto) 30.8 [place] % (Auto) 8.5 H Eos % (Auto) 0.8 Baso % (Auto) 0.4 Neut # (Auto) 5.1 Lymph # (Auto) 2.7 [place] # (Auto) 0.7 Eos # (Auto) 0.1 Baso # (Auto) 0.0 WBC Differential . Differential Comment Auto diff final PT INR APTT Sodium 142 Potassium 3.7 Chloride 105 Carbon Dioxide 26.2 Anion Gap 11 BUN 11 Creatinine 0.88 Estimated GFR 66 L Random Glucose 108 H Calcium 8.0 L Total Bilirubin 0.4 AST 15 ALT 27 Alkaline Phosphatase 102 Total Protein 7.2 Albumin 3.4 - Diagnostic results Imaging: Impressions Elbow X-Ray 01/23/18 09:16 CONCLUSION: Acute nondisplaced radial head fracture. Joint effusion. My review shows evidence of a nondisplaced radial head fracture without angulation. Wrist X-Ray 01/23/18 09:16 CONCLUSION: Distal radial fracture as detailed above. My review shows evidence of a completely displaced distal radius fracture Wrist CT 01/23/18 10:58 CONCLUSION: 1. Acute distal radial fracture as detailed above. 2. Ulnar styloid fracture. This may be chronic. The study shows evidence of comminution in the region of the metaphysis of the radius with a displaced radial fracture. There is a small ulnar styloid fracture acuity of the ulnar styloid fracture is questionable Assessment and Plan - Assessment and Plan Fracture left distal radius and ulnar styloid. Fracture right radial head, nondisplaced. PLAN: Nonsurgical treatment of the right proximal radius fracture. Surgery: Open treatment internal fixation left distal radius fracture with volar plate and screws. Consent: There are risks with surgery including infection, bleeding, loss of motion, continued pain, need for further surgery, loss of fixation, neurologic or vascular injury. She understands these issues and wishes to proceed forward with surgery as outlined above. Surgical treatment likely today
--- NOTE | 2018-01-24 09:15 | P.PN ---
Subjective Interval history: This is a pleasant 57 y/o female who came with left wrist pain status post Mechanical fall, Left wrist XRAY reveals Distal radial fracture, and right elbow xray reveals Acute nondisplaced radial head fracture, with diagnosis of Fracture left distal radius, metaphyseal/intra-articular, comminuted, displaced, four-part. Fracture left ulnar styloid, minimally displaced, Status post Open Treatment internal fixation left distal radius fracture with volar place and screws. Physical Exam Vital signs: Vital Signs 01/23/18 10:06 01/23/18 10:10 01/23/18 10:32 Temperature Pulse Rate 62 61 Respiratory Rate 18 18 16 Blood Pressure 119/61 126/61 Pulse Oximetry 95 96 01/23/18 11:14 01/23/18 11:57 01/23/18 12:00 Temperature 97.4 F L Pulse Rate 64 63 Respiratory Rate 16 19 18 Blood Pressure 136/69 147/71 H Pulse Oximetry 96 100 01/23/18 12:31 01/23/18 16:00 01/23/18 20:00 Temperature 97.4 F L 97.9 F Pulse Rate 64 69 65 Respiratory Rate 18 18 18 Blood Pressure 128/71 165/84 H 159/77 H Pulse Oximetry 96 94 L 96 01/24/18 00:00 01/24/18 08:00 Temperature 99.1 F 97.3 F L Pulse Rate 70 63 Respiratory Rate 18 17 Blood Pressure 166/72 H Pulse Oximetry 94 L 92 L Intake & Output 01/23/18 01/24/18 01/24/18 18:59 06:59 18:59 Intake Total 800 / 800 Balance 800 / 800 Weight 95 kg 97.4 kg Intake: Oral 800 / 800 Other: # Voids 1 2 Date of Last Bowel Movement 01/22/18 Narrative: HEENT: Normocephalic atraumatic pupils equal round reactive. NECK: Supple. No abnormal masses. Full range of motion. CHEST: Clear to auscultation with no rales or rhonchi's or wheezes. HEART: Regular rate and rhythm. No murmurs. ABDOMEN: Soft, nontender, no masses. Normal active bowel sounds. GENITOURINARY: Deferred MUSCULOSKELETAL: Left arm with splint in place. Results - Labs CBC & Chem 7: 01/24/18 05:43 01/24/18 05:43 Laboratory Results - last 24 hr 01/23/18 01/23/18 01/23/18 09:44 09:44 09:44 CBC w Diff Auto diff final WBC 7.6 RBC 4.54 Hgb 14.3 Hct 42.3 MCV 93.1 MCH 31.5 MCHC 33.8 RDW 12.7 Plt Count 174 MPV 9.3 Neut % (Auto) 66.1 Lymph % (Auto) 25.4 [place] % (Auto) 6.6 Eos % (Auto) 1.3 Baso % (Auto) 0.6 Neut # (Auto) 5.1 Lymph # (Auto) 1.9 [place] # (Auto) 0.5 Eos # (Auto) 0.1 Baso # (Auto) 0.0 WBC Differential . Differential Comment . PT 9.7 L INR 1.0 APTT 26.6 Sodium 140 Potassium 3.8 Chloride 108 H Carbon Dioxide 22.4 Anion Gap 10 BUN 14 Creatinine 0.79 Estimated GFR 75 L Random Glucose 128 H Calcium 8.5 Total Bilirubin AST ALT Alkaline Phosphatase Total Protein Albumin 01/24/18 01/24/18 05:43 05:43 CBC w Diff WBC 8.6 RBC 4.19 Hgb 13.6 Hct 39.8 MCV 94.9 MCH 32.4 MCHC 34.2 RDW 13.6 Plt Count 152 MPV 9.2 Neut % (Auto) 59.5 Lymph % (Auto) 30.8 [place] % (Auto) 8.5 H Eos % (Auto) 0.8 Baso % (Auto) 0.4 Neut # (Auto) 5.1 Lymph # (Auto) 2.7 [place] # (Auto) 0.7 Eos # (Auto) 0.1 Baso # (Auto) 0.0 WBC Differential . Differential Comment Auto diff final PT INR APTT Sodium 142 Potassium 3.7 Chloride 105 Carbon Dioxide 26.2 Anion Gap 11 BUN 11 Creatinine 0.88 Estimated GFR 66 L Random Glucose 108 H Calcium 8.0 L Total Bilirubin 0.4 AST 15 ALT 27 Alkaline Phosphatase 102 Total Protein 7.2 Albumin 3.4 - Imaging Impressions Elbow X-Ray 01/23/18 09:16 CONCLUSION: Acute nondisplaced radial head fracture. Joint effusion. Wrist X-Ray 01/23/18 09:16 CONCLUSION: Distal radial fracture as detailed above. Wrist CT 01/23/18 10:58 CONCLUSION: 1. Acute distal radial fracture as detailed above. 2. Ulnar styloid fracture. This may be chronic. - Procedures Date: 01/24/18 16:23 Initialization Date: 01/24/18 16:23 - Preoperative Diagnosis (1) Fracture of wrist Preoperative Diagnosis: Fracture left distal radius, metaphyseal/intra-articular, comminuted, displaced , four-part. Fracture left ulnar styloid, minimally displaced Date of procedure: 01/24/18 Procedure: Open treatment internal fixation left distal radius fracture with volar plate and screws Anesthesia: GETA Surgeon: Warner Jovel MD Assessment and Plan - Assessment (1) Fracture of wrist Code(s): S62.109A - Fracture of unspecified carpal bone, unspecified wrist, initial encounter for closed fracture Status: Acute (2) Nondisplaced fracture of head of right radius Code(s): S52.124A - Nondisplaced fracture of head of right radius, initial encounter for closed fracture Status: Acute (3) Tobacco abuse Code(s): Z72.0 - Tobacco use Status: Acute (4) Tobacco abuse counseling Code(s): Z71.6 - Tobacco abuse counseling Status: Acute - Plan 57-year-old female with Left Distal radial fracture Acute nondisplaced radial head fracture Left Wrist and right Shoulder x-rays were reviewed finding respectively of left distal radial fracture, acute nondisplaced radial head fracture With Diagnosis of Fracture left distal radius, metaphyseal/intra- articular, comminuted, displaced, four-part. Fracture left ulnar styloid, minimally displaced, Status post Open treatment internal fixation left distal radius fracture with volar plate and screws by Doctor Warner Jovel Tobacco abuse Tobacco counseling cessation provided Nicotine patch DVT prophylaxis: Bilateral SCDs Code Status: Full Code. Discussed Condition With: Patient and nurse. Discharge Planning: Once cleared by Orthopedic Surgery. (1) Fracture of wrist Qualifiers: Encounter type: initial encounter Fracture type: closed Laterality: left Qualified Code(s): S62.102A - Fracture of unspecified carpal bone, left wrist, initial encounter for closed fracture
--- NOTE | 2018-01-24 12:37 | ECG ---
Date Performed: 01/24/2018 Time Performed: 08:31:12 PTAGE: 57 years EKG: Sinus rhythm NORMAL ECG NO PREVIOUS TRACING DOCTOR: Ramon Hannon Interpretating Date/Time 01/24/2018 12:36:00
[2018-01-24] MEDS ORDERED: Chlorhexidine Gluconate 2% 1 Pack (2 Cloths) TOPICAL ONE (13:15)
[2018-01-24] MEDS ORDERED: Sodium Chlor 0.9% Inj 500 ML IV.CONT ONE (13:15)
[2018-01-24] MEDS ORDERED: Metoprolol Tartrate 25 MG Tablet PO ONE (13:15)
[2018-01-24] MEDS ORDERED: fentaNYL Citrate Inj 250 MCG/5 ML Ampul ONE (14:28)
[2018-01-24] MEDS ORDERED: ceFAZolin 2 GM Premix Inj 2 GM/50 ML PIGGYBACK IV.SIG ONE (14:36)
[2018-01-24] MEDS ORDERED: Bupivacaine/Epinephrine Inj 0.25% 50 ML Vial ONE (14:36)
[2018-01-24] MEDS ORDERED: Lidocaine PF 1% Inj 5 ML Syringe OTHER ONE (15:09)
[2018-01-24] MEDS ORDERED: Post-op Orders (for Pharmacy) OTHER STA (16:20)
[2018-01-24] MEDS ORDERED: Temazepam 15 MG Capsule PO PRN (16:20)
[2018-01-24] MEDS ORDERED: Bisacodyl 10 MG Supp RECTAL PRN (16:20)
--- NOTE | 2018-01-24 16:26 | P.OP ---
- Preoperative Diagnosis (1) Fracture of wrist Preoperative Diagnosis: Fracture left distal radius, metaphyseal/intra-articular, comminuted, displaced , four-part. Fracture left ulnar styloid, minimally displaced Date of procedure: 01/24/18 Procedure: Open treatment internal fixation left distal radius fracture with volar plate and screws Anesthesia: BRENNEN Surgeon: Warner Jovel MD Counseling Services Manager: VÍCTOR Mattson Operation and Findings: EBL: 25 cc INDICATIONS: This patient is a 57-year-old female who fell yesterday sustaining a fracture of her left distal radius. She indicates it was a work-related injury. She is brought to the emergency room and was found to have some loss of sensation development. She had a closed reduction in the emergency room and placed in a splint. The loss of sensation resolved. She has x-ray showing evidence of a comminuted intra-articular fracture of the distal radius involving at least 4 parts COMPANY: ITS NOTE: Candace Mattson PA-C was present for the entire surgical procedure as my hygiene assistant. In my medical opinion her skill and care was necessary for proper management of this patient. PROCEDURE: The patient was brought to the operating room and anesthetized in the supine position. This patient was positioned with the arm on the arm table. Fluoroscopy was used for visualization. A timeout was done. Antibiotics were given within 1 hour time window. The left arm was scrubbed with alcohol followed by Hibiclens followed by ChloraPrep and draped sterilely. A tourniquet was placed after exsanguination the tourniquet was inflated to 250 mmHg. A volar incision was made along the flexor carpi radialis tendon. The pronator quadratus was lifted from its radial attachment. The fracture was visualized. This was brought into a reduced position and held. A volar plate was positioned and held provisionally. Intraoperative x-ray showed excellent alignment. Multiple distal locking screws were placed as well as shaft screws. The fracture was reduced near anatomically. Intraoperative x-rays were obtained confirming the same. The tourniquet was let down. Hemostasis was controlled with the bipolar cautery. The wound was dry. The fascia was closed with 2-0 Vicryl suture. The skin and subcutaneous tissue was approximated with interrupted 3-0 nylon in a mattress fashion. A sterile dressing and a splint was applied. The patient was awakened and taken to the recovery room in satisfactory condition. No complication was identified. FINDINGS: There is a highly comminuted intra-articular fracture of the distal radius. Final alignment was excellent. Fixation was felt to be very good. We anticipate 2 weeks of splint followed by removable splint allowing limited early motion
[2018-01-24] MEDS ORDERED: HYDROmorphone PF Inj 2 MG/ML Vial ONE (17:00)
--- NOTE | 2018-01-24 17:00 | XR ---
EXAM DATE: 01/24/2018 12:00 AM EDT AGE/SEX: 57 years / Female INDICATIONS: ORIF of the wrist done in the operating room. CLINICAL DATA: This is the patient's initial encounter. Patient reports that signs and symptoms have been present for 1 day and indicates a pain score of Nonresponsive. MEDICAL/SURGICAL HISTORY: None. None. COMPARISON: [facility], CT WRIST LEFT W/O CONTRAST, 01/23/2018. . FINDINGS: Interval plate and screw fixation of distal radial fracture. Hardware appears intact and well-positio leticia. There is near-anatomic alignment of the fracture fragments. Remaining visualized osseous structu res are grossly intact. CONCLUSION: 1. Status post distal left radial ORIF, as above. Electronically signed by: Elio Causey MD 01/24/2018 4:59 PM EDT
[2018-01-24] MEDS: Multivitamin/Minerals Therapeutic Tablet PO SCH (20:45)
[2018-01-24] MEDS: Senna/Docusate Sodium 8.6/50 MG Tablet PO SCH (20:45)
[2018-01-24] MEDS: Morphine Inj 4 MG/ML Vial IV.PUSH PRN ×2 (20:45→23:55)
[2018-01-25 00:18] VITALS: O2SAT 93
[2018-01-25] MEDS: Morphine Inj 4 MG/ML Vial IV.PUSH PRN (04:10)
[2018-01-25 05:47] VITALS: BP 136/66; PULSE 78; RESP 17; TEMP 97.8
--- NOTE | 2018-01-25 08:04 | P.PNOP ---
Subjective Interval history: No complaints. Mild loss of sensation. Comfortable Physical Exam Vital signs: Vital Signs 01/24/18 11:51 01/24/18 16:40 01/24/18 16:45 Temperature 97.3 F L 98.0 F Pulse Rate 56 L 79 72 Respiratory Rate 16 14 14 Blood Pressure 129/64 146/67 H 131/63 Pulse Oximetry 94 L 94 L 94 L 01/24/18 17:00 01/24/18 20:00 01/25/18 00:00 Temperature 97.4 F L 97.9 F Pulse Rate 72 72 68 Respiratory Rate 14 18 18 Blood Pressure 131/60 141/65 H 134/71 Pulse Oximetry 95 96 93 L 01/25/18 04:00 Temperature 97.8 F Pulse Rate 78 Respiratory Rate 17 Blood Pressure 136/66 Pulse Oximetry 93 L Intake & Output 01/24/18 01/25/18 01/25/18 18:59 06:59 18:59 Intake Total 1350 / 1350 200 / 200 Output Total Balance 1340 / 1340 200 / 200 Intake: IV 550 / 550 200 / 200 LR 1000 mL Inj 1,000 ML @ 30 500 / 500 mls/hr IV.CONT .Q24H ONE Rx#: [id number] Ancef 2 GM Premix Inj 2 gm In 50 / 50 50 ml @ 0 mls/hr IV.SIG .STK- MED ONE Rx#:[id number] Ancef Inj 1,000 MG In NS Inj 200 / 200 100 ML @ 200 mls/hr IV.SIG Q6H ISA Rx#:[id number] Oral 200 / 200 Anesthesia Amount 600 / 600 Output: Estimated Blood Loss Other: # Voids 2 Date of Last Bowel Movement 01/23/18 # Bowel Movements 0 Narrative: Dressing in place. Dressing dry. Sensation almost normal. Wiggles her fingers easily Results - Labs CBC & Chem 7: 01/24/18 05:43 01/24/18 05:43 - Imaging Impressions Wrist X-Ray 01/24/18 00:00 CONCLUSION: 1. Status post distal left radial ORIF, as above. - Procedures Date: 01/24/18 16:23 Initialization Date: 01/24/18 16:23 - Preoperative Diagnosis (1) Fracture of wrist Preoperative Diagnosis: Fracture left distal radius, metaphyseal/intra-articular, comminuted, displaced , four-part. Fracture left ulnar styloid, minimally displaced Date of procedure: 01/24/18 Procedure: Open treatment internal fixation left distal radius fracture with volar plate and screws Anesthesia: KATHYA Surgeon: Warner Jovel MD Assessment and Plan - Assessment and Plan Fracture left distal radius and ulnar styloid. Fracture right radial head, nondisplaced. Surgery: ORIF left distal radius with volar plate and screws PLAN: Nonsurgical treatment of the right proximal radius fracture. Discharge to home. [place] for pain. Ice and elevation. 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 Follow-up in 2-3 weeks. On return x-ray right elbow and left wrist. Probably can migrate to removable splint at that time. Stable orthopedically
[2018-01-25] MEDS: Senna/Docusate Sodium 8.6/50 MG Tablet PO SCH (08:06)
[2018-01-25] MEDS: Multivitamin/Minerals Therapeutic Tablet PO SCH (08:06)
--- NOTE | 2018-01-25 09:26 | P.PN ---
Subjective Interval history: This is a pleasant 57 y/o female who came with left wrist pain status post Mechanical fall, Left wrist XRAY reveals Distal radial fracture, and right elbow xray reveals Acute nondisplaced radial head fracture, with diagnosis of Fracture left distal radius, metaphyseal/intra-articular, comminuted, displaced, four-part. Fracture left ulnar styloid, minimally displaced, Status post Open Treatment internal fixation left distal radius fracture with volar place and screws. 01/24: Seen in her bedroom, already cleared for discharge by Orthopedic surgery , no nausea, vomit or diarrhea. Physical Exam Vital signs: Vital Signs 01/24/18 11:51 01/24/18 16:40 01/24/18 16:45 Temperature 97.3 F L 98.0 F Pulse Rate 56 L 79 72 Respiratory Rate 16 14 14 Blood Pressure 129/64 146/67 H 131/63 Pulse Oximetry 94 L 94 L 94 L 01/24/18 17:00 01/24/18 20:00 01/25/18 00:00 Temperature 97.4 F L 97.9 F Pulse Rate 72 72 68 Respiratory Rate 14 18 18 Blood Pressure 131/60 141/65 H 134/71 Pulse Oximetry 95 96 93 L 01/25/18 04:00 Temperature 97.8 F Pulse Rate 78 Respiratory Rate 17 Blood Pressure 136/66 Pulse Oximetry 93 L Intake & Output 01/24/18 01/25/18 01/25/18 18:59 06:59 18:59 Intake Total 1350 / 1350 200 / 200 Output Total Balance 1340 / 1340 200 / 200 Intake: IV 550 / 550 200 / 200 LR 1000 mL Inj 1,000 ML @ 30 500 / 500 mls/hr IV.CONT .Q24H ONE Rx#: [id number] Ancef 2 GM Premix Inj 2 gm In 50 / 50 50 ml @ 0 mls/hr IV.SIG .STK- MED ONE Rx#:[id number] Ancef Inj 1,000 MG In NS Inj 200 / 200 100 ML @ 200 mls/hr IV.SIG Q6H ISA Rx#:[id number] Oral 200 / 200 Anesthesia Amount 600 / 600 Output: Estimated Blood Loss Other: # Voids 2 Date of Last Bowel Movement 01/23/18 # Bowel Movements 0 Narrative: HEENT: Normocephalic atraumatic pupils equal round reactive. NECK: Supple. No abnormal masses. Full range of motion. CHEST: Clear to auscultation with no rales or rhonchi's or wheezes. HEART: Regular rate and rhythm. No murmurs. ABDOMEN: Soft, nontender, no masses. Normal active bowel sounds. GENITOURINARY: Deferred MUSCULOSKELETAL: Left arm with splint in place. Results - Labs CBC & Chem 7: 01/24/18 05:43 01/24/18 05:43 - Imaging Impressions Wrist X-Ray 01/24/18 00:00 CONCLUSION: 1. Status post distal left radial ORIF, as above. - Procedures Date: 01/24/18 16:23 Initialization Date: 01/24/18 16:23 - Preoperative Diagnosis (1) Fracture of wrist Preoperative Diagnosis: Fracture left distal radius, metaphyseal/intra-articular, comminuted, displaced , four-part. Fracture left ulnar styloid, minimally displaced Date of procedure: 01/24/18 Procedure: Open treatment internal fixation left distal radius fracture with volar plate and screws Anesthesia: GETA Surgeon: Warner Jovel MD Assessment and Plan - Assessment (1) Fracture of wrist Code(s): S62.109A - Fracture of unspecified carpal bone, unspecified wrist, initial encounter for closed fracture Status: Acute (2) Nondisplaced fracture of head of right radius Code(s): S52.124A - Nondisplaced fracture of head of right radius, initial encounter for closed fracture Status: Acute (3) Tobacco abuse Code(s): Z72.0 - Tobacco use Status: Acute (4) Tobacco abuse counseling Code(s): Z71.6 - Tobacco abuse counseling Status: Acute - Plan 57-year-old female with Left Distal radial fracture Acute nondisplaced radial head fracture Left Wrist and right Shoulder x-rays were reviewed finding respectively of left distal radial fracture, acute nondisplaced radial head fracture With Diagnosis of Fracture left distal radius, metaphyseal/intra- articular, comminuted, displaced, four-part. Fracture left ulnar styloid, minimally displaced, Status post Open treatment internal fixation left distal radius fracture with volar plate and screws by Doctor Warner Jovel Recommended Non Surgical management on the Right proximal radius fracture, Discharge Home. 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 DVT prophylaxis as per Orthopedic Surgery. Code Status: Full Code. Discussed Condition With: Patient and Nurse. Discharge Planning: Discharge Home. (1) Fracture of wrist Qualifiers: Encounter type: initial encounter Fracture type: closed Laterality: left Qualified Code(s): S62.102A - Fracture of unspecified carpal bone, left wrist, initial encounter for closed fracture
--- NOTE | 2018-01-25 09:32 | P.DS ---
Date of admission: 01/23/18 10:40 Primary care physician: No Primary Care Physician Attending physician on discharge: Nikita Smiley Anticipated date of discharge: 01/25/18 Brief History from admission: 57-year-old female with no significant medical history presented to the ED for evaluation of an acute left wrist pain status post mechanical fall which occurred an hour prior to arrival to the emergency department. Apparently, patient tripped over her shoelaces and fell down on the concrete floor landing on her left arm. Immediately complaint of left wrist and right elbow pain. The pain to the left wrist was rated over 10 in intensity. She denied any trauma to her head. Left wrist XRAY reveals Distal radial fracture, and right elbow xray reveals Acute nondisplaced radial head fracture DS: Diagnosis - Discharge Diagnosis (1) Fracture of wrist Status: Acute (2) Nondisplaced fracture of head of right radius Status: Acute (3) Tobacco abuse Status: Acute (4) Tobacco abuse counseling Status: Acute DS: Medications - Discharge Medications Prescriptions: hydrocodone-acetaminophen 1 tab PO Q4H PRN #42 tab PRN Reason: Acute Pain nicotine [Nicoderm CQ] 1 patch TRANSDERMAL Q24H #30 ea DS: Summary Hospital Course: This is a pleasant 57 y/o female who came with left wrist pain status post Mechanical fall, Left wrist XRAY reveals Distal radial fracture, and right elbow xray reveals Acute nondisplaced radial head fracture, with diagnosis of Fracture left distal radius, metaphyseal/intra-articular, comminuted, displaced, four-part. Fracture left ulnar styloid, minimally displaced, Status post Open Treatment internal fixation left distal radius fracture with volar place and screws. 01/24: Seen in her bedroom, already cleared for discharge by Orthopedic surgery , no nausea, vomit or diarrhea. Physical Exam Vital signs: Vital Signs 01/24/18 11:51 01/24/18 16:40 01/24/18 16:45 Temperature 97.3 F L 98.0 F Pulse Rate 56 L 79 72 Respiratory Rate 16 14 14 Blood Pressure 129/64 146/67 H 131/63 Pulse Oximetry 94 L 94 L 94 L 01/24/18 17:00 01/24/18 20:00 01/25/18 00:00 Temperature 97.4 F L 97.9 F Pulse Rate 72 72 68 Respiratory Rate 14 18 18 Blood Pressure 131/60 141/65 H 134/71 Pulse Oximetry 95 96 93 L 01/25/18 04:00 Temperature 97.8 F Pulse Rate 78 Respiratory Rate 17 Blood Pressure 136/66 Pulse Oximetry 93 L Intake & Output 01/24/18 01/25/18 01/25/18 18:59 06:59 18:59 Intake Total 1350 / 1350 200 / 200 Output Total 10 Balance 1340 / 1340 200 / 200 Intake: IV 550 / 550 200 / 200 LR 1000 mL Inj 1,000 ML @ 30 500 / 500 mls/hr IV.CONT .Q24H ONE Rx#: [id number] Ancef 2 GM Premix Inj 2 gm In 50 / 50 50 ml @ 0 mls/hr IV.SIG .STK- MED ONE Rx#:[id number] Ancef Inj 1,000 MG In NS Inj 200 / 200 100 ML @ 200 mls/hr IV.SIG Q6H ISA Rx#:[id number] Oral 200 / 200 Anesthesia Amount 600 / 600 Output: Estimated Blood Loss Other: # Voids 2 Date of Last Bowel Movement 01/23/18 # Bowel Movements 0 Results - Labs CBC & Chem 7: 01/24/18 05:43 01/24/18 05:43 - Imaging Impressions Wrist X-Ray 01/24/18 00:00 CONCLUSION: 1. Status post distal left radial ORIF, as above. - Procedures Date: 01/24/18 16:23 Initialization Date: 01/24/18 16:23 - Preoperative Diagnosis (1) Fracture of wrist Preoperative Diagnosis: Fracture left distal radius, metaphyseal/intra-articular, comminuted, displaced , four-part. Fracture left ulnar styloid, minimally displaced Date of procedure: 01/24/18 Procedure: Open treatment internal fixation left distal radius fracture with volar plate and screws Anesthesia: GETA Surgeon: Warner Jovel MD Assessment and Plan - Assessment (1) Fracture of wrist Code(s): S62.109A - Fracture of unspecified carpal bone, unspecified wrist, initial encounter for closed fracture Status: Acute (2) Nondisplaced fracture of head of right radius Code(s): S52.124A - Nondisplaced fracture of head of right radius, initial encounter for closed fracture Status: Acute (3) Tobacco abuse Code(s): Z72.0 - Tobacco use Status: Acute (4) Tobacco abuse counseling Code(s): Z71.6 - Tobacco abuse counseling Status: Acute - Plan 57-year-old female with Left Distal radial fracture Acute nondisplaced radial head fracture Left Wrist and right Shoulder x-rays were reviewed finding respectively of left distal radial fracture, acute nondisplaced radial head fracture With Diagnosis of Fracture left distal radius, metaphyseal/intra- articular, comminuted, displaced, four-part. Fracture left ulnar styloid, minimally displaced, Status post Open treatment internal fixation left distal radius fracture with volar plate and screws by Doctor Warner Jovel Recommended Non Surgical management on the Right proximal radius fracture, Discharge Home. 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 DVT prophylaxis as per Orthopedic Surgery. Code Status: Full Code. Discussed Condition With: Patient and Nurse. Discharge Planning: Discharge Home. - Time Spent with Patient Total time spent providing and/or coordinating discharge services: Less than 30 minutes - Quality: VTE Deep Vein Thrombosis/Pulmonary Embolism Present on Admission: No Exam Vital signs: Vital Signs 01/24/18 11:51 01/24/18 16:40 01/24/18 16:45 Temperature 97.3 F L 98.0 F Pulse Rate 56 L 79 72 Respiratory Rate 16 14 14 Blood Pressure 129/64 146/67 H 131/63 Pulse Oximetry 94 L 94 L 94 L 01/24/18 17:00 01/24/18 20:00 01/25/18 00:00 Temperature 97.4 F L 97.9 F Pulse Rate 72 72 68 Respiratory Rate 14 18 18 Blood Pressure 131/60 141/65 H 134/71 Pulse Oximetry 95 96 93 L 01/25/18 04:00 Temperature 97.8 F Pulse Rate 78 Respiratory Rate 17 Blood Pressure 136/66 Pulse Oximetry 93 L Intake & Output 01/24/18 01/25/18 01/25/18 18:59 06:59 18:59 Intake Total 1350 / 1350 200 / 200 Output Total Balance 1340 / 1340 200 / 200 Intake: IV 550 / 550 200 / 200 LR 1000 mL Inj 1,000 ML @ 30 500 / 500 mls/hr IV.CONT .Q24H ONE Rx#: [id number] Ancef 2 GM Premix Inj 2 gm In 50 / 50 50 ml @ 0 mls/hr IV.SIG .STK- MED ONE Rx#:[id number] Ancef Inj 1,000 MG In NS Inj 200 / 200 100 ML @ 200 mls/hr IV.SIG Q6H ISA Rx#:[id number] Oral 200 / 200 Anesthesia Amount 600 / 600 Output: Estimated Blood Loss Other: # Voids 2 Date of Last Bowel Movement 01/23/18 # Bowel Movements 0 Narrative: HEENT: Normocephalic atraumatic pupils equal round reactive. NECK: Supple. No abnormal masses. Full range of motion. CHEST: Clear to auscultation with no rales or rhonchi's or wheezes. HEART: Regular rate and rhythm. No murmurs. ABDOMEN: Soft, nontender, no masses. Normal active bowel sounds. GENITOURINARY: Deferred MUSCULOSKELETAL: Left arm with splint in place. Results Procedures completed during hospitalization: Date: 01/24/18 16:23 Initialization Date: 01/24/18 16:23 - Preoperative Diagnosis (1) Fracture of wrist Preoperative Diagnosis: Fracture left distal radius, metaphyseal/intra-articular, comminuted, displaced , four-part. Fracture left ulnar styloid, minimally displaced Date of procedure: 01/24/18 Procedure: Open treatment internal fixation left distal radius fracture with volar plate and screws Anesthesia: GETA Surgeon: Warner Jovel MD - Impressions ITS Impressions Elbow X-Ray 01/23/18 09:16 CONCLUSION: Acute nondisplaced radial head fracture. Joint effusion. Wrist CT 01/23/18 10:58 CONCLUSION: 1. Acute distal radial fracture as detailed above. 2. Ulnar styloid fracture. This may be chronic. Wrist X-Ray 01/24/18 00:00 CONCLUSION: 1. Status post distal left radial ORIF, as above. Discharge Plan - Discharge Disposition Patient Disposition: 01 Discharge Home - Discharge Condition Condition: Good - Discharge Order Discharge Orders: Discharge Order (Routine); Ordered 01/25/18 Ordered By: Warner Jovel - Discharge Details Anticipated Discharge Date: 01/25/18 Discharge Comment: Follow up with Doctor Warner Jovel in two to three weeks. - Physicians Team Primary Care Provider: Primary Care Macki,No Attending Provider: Nikita Smiley Other Providers: Warner Jovel MD
== END 2018-01-25 09:27 | disposition home or self-care (01) ==
LOC: PHED 09:03 → PHEDA 10:40 → N07 13:13
PROVIDERS: ADMIT Internal Medicine; ATTEND Internal Medicine